=== PATIENT | female | born 1990 | race Caucasian/White ===

== ENCOUNTER 2021-03-23 18:30 | Observation (INO) | payer BC ==
[~2021-03-23] VITALS: Ht 167.6 cm; Wt 83.1 kg
[2021-03-23] MEDS ORDERED: GLUCAGON,HUMAN RECOMBINANT 1 MG/ML VIAL. IV ONE (22:00)
[2021-03-23] MEDS ORDERED: IV NORMAL SALINE 1000ML BAG 1,000 ML IV ONE ×2 (22:00→22:15)
[2021-03-23] MEDS ORDERED: fentaNYL PF VIAL 100 MCG/2 ML VIAL IV PRN (22:15)
[2021-03-23] MEDS ORDERED: ONDANSETRON PF 4 MG/2 ML VIAL. IV PRN (22:15)
[2021-03-23 22:22] LABS: BILIRUBIN,URINE SMALL (NEG); CLARITY,URINE CLEAR; COLOR,URINE YELLOW; NITRITE,URINE NEGATIVE (NEG); PH,URINE 5.5 (<5.0-8.0); PROTEIN,URINE NEGATIVE (NEG-TRACE); UROBILINOGEN,URINE 0.2 mg/dL (0.2 mg/dL)
[2021-03-23 22:24] LABS: BACTERIA,URINE 0 /HPF (0-FEW); RBC,URINE 0 /HPF (0-2)
--- NOTE | 2021-03-23 22:38 | RAD ---
PA and lateral chest. HISTORY: Esophageal foreign body PA and lateral views were taken of the chest. Lungs are free of infiltrates. There is no pneumothorax or pleural effusion. Heart is normal in size. There is no opaque foreign body in the chest. IMPRESSION: 1. No acute chest disease. Electronically signed by: Hong Orantes MD (03/23/2021 10:36 PM) [facility]
[2021-03-23 22:51] LABS: BASO # 0.1 x10^3/uL (0.0-0.2); BASO % 1 % (0-3); EOS # 0.6 x10^3/uL (0.0-0.7); EOS % 5 % (0-3); HEMOGLOBIN 12.9 g/dL (12.0-15.5); LYMPH # 3.5 x10^3/uL (1.0-4.8); LYMPH % 30 % (24-48); MEAN CORPUSCULAR HEMOGLOBIN 25 pg (25-35); MEAN CORPUSCULAR HGB CONC 32 g/dL (31-37); MEAN CORPUSCULAR VOLUME 76 fL (79-100); MONO # 0.7 x10^3/uL (0.0-1.1); MONO % 7 % (0-9); NEUT # 6.5 x10^3/uL (1.8-7.7); NEUT % 57 % (31-73); PLATELET COUNT 299 x10^3/uL (140-400); RED BLOOD COUNT 5.25 x10^6/uL (3.50-5.40); RED CELL DISTRIBUTION WIDTH 21.1 % (11.5-14.5); WHITE BLOOD COUNT 11.4 x10^3/uL (4.0-11.0)
--- NOTE | 2021-03-23 22:53 | PHYS DOC ---
Past Medical History Past Medical History: No Pertinent History Past Surgical History: No Surgical History Smoking Status: Never Smoker Alcohol Use: Occasionally Drug Use: None General Adult EDM: Chief Complaint: GI PROBLEM HPI: HPI: Patient is a 30 year old female presents with report of eating steak last night and sensation of it getting stuck in esophagus. Reports has tried to drink water and soda in attempt to improve situation however patient has not been able to keep the liquid down as it "comes back up". Reports uncomfortable pressure in chest. Denies prior esophageal food bolus or prior EGD. Patient reports history of sensation of getting food stuck, however she has always managed for symptoms to improve. Denies . Reports recent vaginal delivery 8 weeks ago. Denies shortness of breath or breathing issues. Review of Systems: Review of Systems: Constitutional: Denies fever or chills Eyes: Denies redness or eye pain HENT: Denies nasal congestion or sore throat Respiratory: Denies cough or shortness of breath Cardiovascular: Denies chest pain or palpitations GI: Reports esophageal foreign body sensation and vomiting : Denies dysuria or hematuria Musculoskeletal: Denies back pain or joint pain Integument: Denies rash or skin lesions Neurologic: Denies headache, focal weakness or sensory changes Complete systems were reviewed and found to be within normal limits, except as documented in this note. Heart Score: C/O Chest Pain: N/A Current Medications: Current Medications Medications (Trade) Dose Ordered Sig/[facility] Start Time Stop Time Status Last Admin Dose Admin Fentanyl Citrate (Fentanyl 2ml Vial) 50 mcg PRN Q2HR PRN 03/23/21 22:15 Glucagon (Glucagen) 1 mg 1X ONCE 03/23/21 22:00 03/23/21 22:01 DC Ondansetron HCl (Zofran) 4 mg PRN Q8HRS PRN 03/23/21 22:15 03/24/21 22:14 Sodium Chloride 1,000 ml @ 100 mls/hr 1X ONCE 03/23/21 22:15 03/24/21 08:14 Allergies: Allergies: Allergies Coded Allergies Type Severity Reaction Last Updated Verified cefadroxil Allergy Intermediate 03/23/21 Yes levofloxacin Allergy Intermediate 03/23/21 Yes Physical Exam: PE: Constitutional: Well developed, well nourished, no acute distress, non-toxic appearance HENT: Normocephalic, atraumatic Eyes: Conjunctiva normal, no discharge Neck: Normal range of motion, supple Lungs & Thorax: No respiratory distress, equal chest rise and fall Abdomen: Soft, no tenderness, no guarding/rebound tenderness/distention Skin: Warm, dry, no erythema, no rash Extremities: No tenderness, ROM intact, no edema Neurologic: Alert and oriented X 3, no focal deficits noted Psychologic: Affect normal, judgment normal Current Patient Data: Labs: Laboratory Tests Test 03/23/21 22:06 03/23/21 22:09 Urine Collection Type Unknown Urine Color Yellow Urine Clarity Clear Urine pH 5.5 (<5.0-8.0) Urine Specific [place] >=1.030 (1.000-1.030) Urine Protein Negative mg/dL (NEG-TRACE) Urine Glucose (UA) Negative mg/dL (NEG) Urine Ketones (Stick) 15 mg/dL (NEG) Urine Blood Negative (NEG) Urine Nitrite Negative (NEG) Urine Bilirubin Small (NEG) Urine Urobilinogen Dipstick 0.2 mg/dL (0.2 mg/dL) Urine Leukocyte Esterase Negative (NEG) Urine RBC 0 /HPF (0-2) Urine WBC 1-4 /HPF (0-4) Urine Squamous Epithelial Cells Many /LPF Urine Bacteria 0 /HPF (0-FEW) Urine Mucus Slight /LPF POC Urine HCG, Qualitative Hcg negative (Negative) Vital Signs: Vital Signs Date Time Temp Pulse Resp B/P (MAP) Pulse Ox O2 Delivery O2 Flow Rate FiO2 03/23/21 20:20 98.2 92 16 122/66 98 Room Air 98.2 EKG: EKG: [] Radiology/Procedures: Radiology/Procedures: PROCEDURE: CHEST PA & LATERAL PA and lateral chest. HISTORY: Esophageal foreign body PA and lateral views were taken of the chest. Lungs are free of infiltrates. There is no pneumothorax or pleural effusion. Heart is normal in size. There is no opaque foreign body in the chest. IMPRESSION: 1. No acute chest disease. Electronically signed by: Hong Orantes MD (03/23/2021 10:36 PM) [facility] Course & Med Decision Making: Course & Med Decision Making Pertinent Labs and Imaging studies reviewed. (See chart for details) Patient presents with HPI and physical exam consistent for esophageal food bolus. Attempted glucagon without improvement. XR without signs of radio- opaque density. Labs obtained and posted to chart. IVF hydration given. Patient requiring admission for further evaluation and treatment. Discussed with Dr. Garcia (hospitalist) who is in agreement with admission. Discussed case with Dr. Read (GI) who is in agreement with consultation. Discussed findings and plan with patient, who acknowledges understanding and agreement. Dragon Disclaimer: Dragon Disclaimer: This electronic medical record was generated, in whole or in part, using a voice recognition dictation system. Departure Departure Impression: Primary Impression: Esophageal obstruction due to food impaction Disposition: ADMITTED INPATIENT Admitting Physician: BERONICA (Jose) Condition: STABLE Referrals: ELIJAH SIERRA MD (PCP) STEVENSON JARA DO Mar 23, 2021 22:53
[2021-03-23 23:00] LABS: CALCIUM 9.8 mg/dL (8.5-10.1); CREATININE 0.7 mg/dL (0.6-1.0); GFR 98.3; POTASSIUM 3.9 mmol/L (3.5-5.1)
[2021-03-23 23:05] LABS: ALBUMIN 4.2 g/dL (3.4-5.0); ALBUMIN/GLOBULIN RATIO 0.9 (1.0-1.7); MAGNESIUM 2.2 mg/dL (1.8-2.4); TOTAL BILIRUBIN 0.6 mg/dL (0.2-1.0); TOTAL PROTEIN 8.7 g/dL (6.4-8.2)
[2021-03-23 23:32] LABS: PLT ESTIMATE ADEQUATE (ADEQUATE)
[2021-03-23 23:33] LABS: ANISOCYTOSIS MOD; HYPOCHROMIA SLIGHT
[2021-03-24] VITALS (10 sets, daily range): BP systolic 106–135; BP diastolic 51–92
--- NOTE | 2021-03-24 10:40 | PDOC1 ---
History and Physical Date of Service: DOS: DATE: 03/24/21 TIME: 10:34 Chief Complaint: Problems: (1) Esophageal obstruction due to food impaction Chief Complain: "Food stuck in esophagus" History of Present Illness: Reason for Visit: Food second esophagus causing abdominal pain HPI: Patient is a 30-year-old female admitted overnight due to pain in her epigastric area. Patient reported that on night for dinner she had eaten a steak and she felt like it was stuck at the bottom of her esophagus. She tried to drink down improvement with pressure. She dried to make herself vomit but was had no relief. She is unable to eat and drink for 24 hours and with no improvement presented to the emergency room last night. In the emergency room patient was evaluated and GI consulted who plan for EGD today. Patient admitted to hospitalist team. When seen patient was endorsing epigastric abdominal pain which he tries to swallow saliva or any sort of fluids; she was also complaining of notable amount of hunger. She was denying any sort of headache, vision changes, chest pain, shortness of breath, dysuria, joint pain. Past Medical/Surgical History: PMH/PSH: Reports no previous medical history Allergies: Allergies: Coded Allergies: cefadroxil (Verified Allergy, Intermediate, 03/23/21) levofloxacin (Verified Allergy, Intermediate, 03/23/21) Family History: Family History: Noncontributory Social History: Social History: Denies alcohol tobacco drug use Current Medications: Current Medications Current Medications Sodium Chloride 1,000 ml @ 1,000 mls/hr 1X ONCE IV Last administered on 03/23/21at 22:42; Start 03/23/21 at 22:00; Stop 03/23/21 at 22:59; Status DC Glucagon (Glucagen) 1 mg 1X ONCE IV Last administered on 03/23/21at 23:28; Start 03/23/21 at 22:00; Stop 03/23/21 at 22:01; Status DC Ondansetron HCl (Zofran) 4 mg PRN Q8HRS PRN IV NAUSEA/VOMITING; Start 03/23/21 at 22:15; Stop 03/24/21 at 22:14 Fentanyl Citrate (Fentanyl 2ml Vial) 50 mcg PRN Q2HR PRN IV PAIN; Start 03/23/21 at 22:15 Sodium Chloride 1,000 ml @ 100 mls/hr 1X ONCE IV Last administered on 03/24/21at 00:06; Start 03/23/21 at 22:15; Stop 03/24/21 at 08:14; Status DC Active Scripts Active Reported No Known Medications Prior To Admisstion (Info) Each 1 Each 1X ROS: Review of Systems Review of System Negative unless noted in HPI. Physical Exam: Vital Signs: Vital Signs Date Time Temp Pulse Resp B/P (MAP) Pulse Ox O2 Delivery O2 Flow Rate FiO2 03/24/21 07:00 98.3 85 18 135/64 (87) 100 Room Air 98.3 Physcial Exam: GEN: No apparent distress. Alert and oriented HEENT: Normal cephalic, atraumatic, external auditory canals are patent EYES: Extraocular muscles are intact, pupil are equally round and reactive to light and accommodation MUSCULOSKELETAL: Well developed , well nourished, good range of motion ENDOCRINE: No thyromegaly was palpated LYMPHATICS: No cervical chain or axillary nodes were noted HEMATOPOIETIC: No bruising NECK: Supple, no JVD, no thyromegaly was noted LUNGS: Clear to auscultation in all lung olivares without rhonchi or wheezing HEART: RRR, S1, S2 present. Peripheral pulses intact, no obvious murmurs noted ABDOMEN: Mild tenderness in epigastrium otherwise no tenderness, normal bowel sounds, no organomegaly EXTREMITIES: Without clubbing, cyanosis, or edema. Pedal pulses intact. NEUROLOGIC: Normal speech and tone. A&O x 3, moves all extremities, no obvious focal deficits PSYCHIATRIC: Normal affect, normal mood. Stable SKIN: No ulcerations or rashes, good skin turgor, no jaundice VASCULAR: Good capillary refill, neurovascular bundle appears to be intact Labs: Labs: Laboratory Tests Test 03/23/21 22:06 03/23/21 22:09 03/23/21 22:40 03/23/21 22:55 Urine Collection Type Unknown Urine Color Yellow Urine Clarity Clear Urine pH 5.5 (<5.0-8.0) Urine Specific [place] >=1.030 (1.000-1.030) Urine Protein Negative mg/dL (NEG-TRACE) Urine Glucose (UA) Negative mg/dL (NEG) Urine Ketones (Stick) 15 mg/dL (NEG) Urine Blood Negative (NEG) Urine Nitrite Negative (NEG) Urine Bilirubin Small (NEG) Urine Urobilinogen Dipstick 0.2 mg/dL (0.2 mg/dL) Urine Leukocyte Esterase Negative (NEG) Urine RBC 0 /HPF (0-2) Urine WBC 1-4 /HPF (0-4) Urine Squamous Epithelial Cells Many /LPF Urine Bacteria 0 /HPF (0-FEW) Urine Mucus Slight /LPF Bedside Urine HCG, Qualitative Hcg negative (Negative) White Blood Count 11.4 x10^3/uL (4.0-11.0) Red Blood Count 5.25 x10^6/uL (3.50-5.40) Hemoglobin 12.9 g/dL (12.0-15.5) Hematocrit 40.0 % (36.0-47.0) Mean Corpuscular Volume 76 fL (79-100) Mean Corpuscular Hemoglobin 25 pg (25-35) Mean Corpuscular Hemoglobin Concent 32 g/dL (31-37) Red Cell Distribution Width 21.1 % (11.5-14.5) Platelet Count 299 x10^3/uL (140-400) Neutrophils (%) (Auto) 57 % (31-73) Lymphocytes (%) (Auto) 30 % (24-48) Monocytes (%) (Auto) 7 % (0-9) Eosinophils (%) (Auto) 5 % (0-3) Basophils (%) (Auto) 1 % (0-3) Neutrophils # (Auto) 6.5 x10^3/uL (1.8-7.7) Lymphocytes # (Auto) 3.5 x10^3/uL (1.0-4.8) Monocytes # (Auto) 0.7 x10^3/uL (0.0-1.1) Eosinophils # (Auto) 0.6 x10^3/uL (0.0-0.7) Basophils # (Auto) 0.1 x10^3/uL (0.0-0.2) Platelet Estimate Adequate (ADEQUATE) Hypochromasia Slight Anisocytosis Mod Sodium Level 140 mmol/L (136-145) Potassium Level 3.9 mmol/L (3.5-5.1) Chloride Level 101 mmol/L (98-107) Carbon Dioxide Level 28 mmol/L (21-32) Anion Gap 11 (6-14) Blood Urea Nitrogen 14 mg/dL (7-20) Creatinine 0.7 mg/dL (0.6-1.0) Estimated GFR (Cockcroft-Gault) 98.3 BUN/Creatinine Ratio 20 (6-20) Glucose Level 89 mg/dL (70-99) Calcium Level 9.8 mg/dL (8.5-10.1) Magnesium Level 2.2 mg/dL (1.8-2.4) Total Bilirubin 0.6 mg/dL (0.2-1.0) Aspartate Amino Transf (AST/SGOT) 16 U/L (15-37) Alanine Aminotransferase (ALT/SGPT) 30 U/L (14-59) Alkaline Phosphatase 147 U/L (46-116) Total Protein 8.7 g/dL (6.4-8.2) Albumin 4.2 g/dL (3.4-5.0) Albumin/Globulin Ratio 0.9 (1.0-1.7) Lipase 101 U/L (73-393) SARS-CoV-2 RNA (BALAJI) Negative (Negative) SARS-CoV-2 Antigen (Rapid) Negative (NEGATIVE) Laboratory Tests Test 03/23/21 22:06 03/23/21 22:09 03/23/21 22:40 03/23/21 22:55 Urine Collection Type Unknown Urine Color Yellow Urine Clarity Clear Urine pH 5.5 (<5.0-8.0) Urine Specific [place] >=1.030 (1.000-1.030) Urine Protein Negative mg/dL (NEG-TRACE) Urine Glucose (UA) Negative mg/dL (NEG) Urine Ketones (Stick) 15 mg/dL (NEG) Urine Blood Negative (NEG) Urine Nitrite Negative (NEG) Urine Bilirubin Small (NEG) Urine Urobilinogen Dipstick 0.2 mg/dL (0.2 mg/dL) Urine Leukocyte Esterase Negative (NEG) Urine RBC 0 /HPF (0-2) Urine WBC 1-4 /HPF (0-4) Urine Squamous Epithelial Cells Many /LPF Urine Bacteria 0 /HPF (0-FEW) Urine Mucus Slight /LPF Bedside Urine HCG, Qualitative Hcg negative (Negative) White Blood Count 11.4 x10^3/uL (4.0-11.0) Red Blood Count 5.25 x10^6/uL (3.50-5.40) Hemoglobin 12.9 g/dL (12.0-15.5) Hematocrit 40.0 % (36.0-47.0) Mean Corpuscular Volume 76 fL (79-100) Mean Corpuscular Hemoglobin 25 pg (25-35) Mean Corpuscular Hemoglobin Concent 32 g/dL (31-37) Red Cell Distribution Width 21.1 % (11.5-14.5) Platelet Count 299 x10^3/uL (140-400) Neutrophils (%) (Auto) 57 % (31-73) Lymphocytes (%) (Auto) 30 % (24-48) Monocytes (%) (Auto) 7 % (0-9) Eosinophils (%) (Auto) 5 % (0-3) Basophils (%) (Auto) 1 % (0-3) Neutrophils # (Auto) 6.5 x10^3/uL (1.8-7.7) Lymphocytes # (Auto) 3.5 x10^3/uL (1.0-4.8) Monocytes # (Auto) 0.7 x10^3/uL (0.0-1.1) Eosinophils # (Auto) 0.6 x10^3/uL (0.0-0.7) Basophils # (Auto) 0.1 x10^3/uL (0.0-0.2) Platelet Estimate Adequate (ADEQUATE) Hypochromasia Slight Anisocytosis Mod Sodium Level 140 mmol/L (136-145) Potassium Level 3.9 mmol/L (3.5-5.1) Chloride Level 101 mmol/L (98-107) Carbon Dioxide Level 28 mmol/L (21-32) Anion Gap 11 (6-14) Blood Urea Nitrogen 14 mg/dL (7-20) Creatinine 0.7 mg/dL (0.6-1.0) Estimated GFR (Cockcroft-Gault) 98.3 BUN/Creatinine Ratio 20 (6-20) Glucose Level 89 mg/dL (70-99) Calcium Level 9.8 mg/dL (8.5-10.1) Magnesium Level 2.2 mg/dL (1.8-2.4) Total Bilirubin 0.6 mg/dL (0.2-1.0) Aspartate Amino Transf (AST/SGOT) 16 U/L (15-37) Alanine Aminotransferase (ALT/SGPT) 30 U/L (14-59) Alkaline Phosphatase 147 U/L (46-116) Total Protein 8.7 g/dL (6.4-8.2) Albumin 4.2 g/dL (3.4-5.0) Albumin/Globulin Ratio 0.9 (1.0-1.7) Lipase 101 U/L (73-393) SARS-CoV-2 RNA (BALAJI) Negative (Negative) SARS-CoV-2 Antigen (Rapid) Negative (NEGATIVE) Assessment/Plan Assessment/Plan Patient is a 30-year-old female presenting today due to esophageal obstruction. Esophageal obstruction due to food impaction -Patient reports getting steak caught in her esophagus on night -Unable to eat or drink for the past 24 hours; still feels like food is stuck -GI consulted, plan for EGD today -Pending EGD goals no complications can likely discharge later today -N.p.o. -I spent 10 minutes discussing advance care planning with patient Justifications for Admission Other Justification LUL ORTIZ MD Mar 24, 2021 10:40
[2021-03-24] MEDS ORDERED: PROPOFOL 10 MG/ML (20ML) VIAL. IV ONE ×2 (18:50→18:59)
[2021-03-24] MEDS ORDERED: ePHEDrine PF IN SALINE 50 MG/10 ML SYRINGE. IV ONE (18:51)
--- NOTE | 2021-03-24 18:57 | PDOC2 ---
CONSULT Date of Consult Date of Consult DATE: 03/24/21 TIME: 18:56 Reason for Consult Reason for Consult: Dysphagia Current Problem List Problem List Problems Medical Problems: (1) Esophageal obstruction due to food impaction Status: Acute Current Medications Current Medications Current Medications Sodium Chloride 1,000 ml @ 1,000 mls/hr 1X ONCE IV Last administered on 03/23/21at 22:42; Start 03/23/21 at 22:00; Stop 03/23/21 at 22:59; Status DC Glucagon (Glucagen) 1 mg 1X ONCE IV Last administered on 03/23/21at 23:28; Sta rt 03/23/21 at 22:00; Stop 03/23/21 at 22:01; Status DC Ondansetron HCl (Zofran) 4 mg PRN Q8HRS PRN IV NAUSEA/VOMITING; Start 03/23/21 at 22:15; Stop 03/24/21 at 22:14 Fentanyl Citrate (Fentanyl 2ml Vial) 50 mcg PRN Q2HR PRN IV PAIN; Start 03/23/21 at 22:15 Sodium Chloride 1,000 ml @ 100 mls/hr 1X ONCE IV Last administered on 03/24/21at 00:06; Start 03/23/21 at 22:15; Stop 03/24/21 at 08:14; Status DC Propofol (Diprivan) 200 mg STK-MED ONCE IV ; Start 03/24/21 at 18:50; Stop 03/24/21 at 18:51; Status DC Ephedrine Sulfate (ePHEDrine PF IN SALINE SYRINGE) 50 mg STK-MED ONCE IV ; Start 03/24/21 at 18:51; Stop 03/24/21 at 18:51; Status DC Active Scripts Active Reported No Known Medications Prior To Admisstion (Info) Each 1 Each MC 1X Allergies Allergies: Coded Allergies: cefadroxil (Verified Allergy, Intermediate, 03/24/21) levofloxacin (Verified Allergy, Intermediate, 03/24/21) Vitals VITALS Vital Signs Date Time Temp Pulse Resp B/P (MAP) Pulse Ox O2 Delivery O2 Flow Rate FiO2 03/24/21 18:47 Room Air 03/24/21 18:47 97 102 18 99 97.0 03/24/21 15:00 108/60 (76) Labs Labs Laboratory Tests Test 03/23/21 22:06 03/23/21 22:09 03/23/21 22:40 03/23/21 22:55 Urine Collection Type Unknown Urine Color Yellow Urine Clarity Clear Urine pH 5.5 (<5.0-8.0) Urine Specific [place] >=1.030 (1.000-1.030) Urine Protein Negative mg/dL (NEG-TRACE) Urine Glucose (UA) Negative mg/dL (NEG) Urine Ketones (Stick) 15 mg/dL (NEG) Urine Blood Negative (NEG) Urine Nitrite Negative (NEG) Urine Bilirubin Small (NEG) Urine Urobilinogen Dipstick 0.2 mg/dL (0.2 mg/dL) Urine Leukocyte Esterase Negative (NEG) Urine RBC 0 /HPF (0-2) Urine WBC 1-4 /HPF (0-4) Urine Squamous Epithelial Cells Many /LPF Urine Bacteria 0 /HPF (0-FEW) Urine Mucus Slight /LPF Bedside Urine HCG, Qualitative Hcg negative (Negative) White Blood Count 11.4 x10^3/uL (4.0-11.0) Red Blood Count 5.25 x10^6/uL (3.50-5.40) Hemoglobin 12.9 g/dL (12.0-15.5) Hematocrit 40.0 % (36.0-47.0) Mean Corpuscular Volume 76 fL (79-100) Mean Corpuscular Hemoglobin 25 pg (25-35) Mean Corpuscular Hemoglobin Concent 32 g/dL (31-37) Red Cell Distribution Width 21.1 % (11.5-14.5) Platelet Count 299 x10^3/uL (140-400) Neutrophils (%) (Auto) 57 % (31-73) Lymphocytes (%) (Auto) 30 % (24-48) Monocytes (%) (Auto) 7 % (0-9) Eosinophils (%) (Auto) 5 % (0-3) Basophils (%) (Auto) 1 % (0-3) Neutrophils # (Auto) 6.5 x10^3/uL (1.8-7.7) Lymphocytes # (Auto) 3.5 x10^3/uL (1.0-4.8) Monocytes # (Auto) 0.7 x10^3/uL (0.0-1.1) Eosinophils # (Auto) 0.6 x10^3/uL (0.0-0.7) Basophils # (Auto) 0.1 x10^3/uL (0.0-0.2) Platelet Estimate Adequate (ADEQUATE) Hypochromasia Slight Anisocytosis Mod Sodium Level 140 mmol/L (136-145) Potassium Level 3.9 mmol/L (3.5-5.1) Chloride Level 101 mmol/L (98-107) Carbon Dioxide Level 28 mmol/L (21-32) Anion Gap 11 (6-14) Blood Urea Nitrogen 14 mg/dL (7-20) Creatinine 0.7 mg/dL (0.6-1.0) Estimated GFR (Cockcroft-Gault) 98.3 BUN/Creatinine Ratio 20 (6-20) Glucose Level 89 mg/dL (70-99) Calcium Level 9.8 mg/dL (8.5-10.1) Magnesium Level 2.2 mg/dL (1.8-2.4) Total Bilirubin 0.6 mg/dL (0.2-1.0) Aspartate Amino Transf (AST/SGOT) 16 U/L (15-37) Alanine Aminotransferase (ALT/SGPT) 30 U/L (14-59) Alkaline Phosphatase 147 U/L (46-116) Total Protein 8.7 g/dL (6.4-8.2) Albumin 4.2 g/dL (3.4-5.0) Albumin/Globulin Ratio 0.9 (1.0-1.7) Lipase 101 U/L (73-393) SARS-CoV-2 RNA (BALAJI) Negative (Negative) SARS-CoV-2 Antigen (Rapid) Negative (NEGATIVE) Laboratory Tests Test 03/23/21 22:06 03/23/21 22:09 03/23/21 22:40 03/23/21 22:55 Urine Collection Type Unknown Urine Color Yellow Urine Clarity Clear Urine pH 5.5 (<5.0-8.0) Urine Specific [place] >=1.030 (1.000-1.030) Urine Protein Negative mg/dL (NEG-TRACE) Urine Glucose (UA) Negative mg/dL (NEG) Urine Ketones (Stick) 15 mg/dL (NEG) Urine Blood Negative (NEG) Urine Nitrite Negative (NEG) Urine Bilirubin Small (NEG) Urine Urobilinogen Dipstick 0.2 mg/dL (0.2 mg/dL) Urine Leukocyte Esterase Negative (NEG) Urine RBC 0 /HPF (0-2) Urine WBC 1-4 /HPF (0-4) Urine Squamous Epithelial Cells Many /LPF Urine Bacteria 0 /HPF (0-FEW) Urine Mucus Slight /LPF Bedside Urine HCG, Qualitative Hcg negative (Negative) White Blood Count 11.4 x10^3/uL (4.0-11.0) Red Blood Count 5.25 x10^6/uL (3.50-5.40) Hemoglobin 12.9 g/dL (12.0-15.5) Hematocrit 40.0 % (36.0-47.0) Mean Corpuscular Volume 76 fL (79-100) Mean Corpuscular Hemoglobin 25 pg (25-35) Mean Corpuscular Hemoglobin Concent 32 g/dL (31-37) Red Cell Distribution Width 21.1 % (11.5-14.5) Platelet Count 299 x10^3/uL (140-400) Neutrophils (%) (Auto) 57 % (31-73) Lymphocytes (%) (Auto) 30 % (24-48) Monocytes (%) (Auto) 7 % (0-9) Eosinophils (%) (Auto) 5 % (0-3) Basophils (%) (Auto) 1 % (0-3) Neutrophils # (Auto) 6.5 x10^3/uL (1.8-7.7) Lymphocytes # (Auto) 3.5 x10^3/uL (1.0-4.8) Monocytes # (Auto) 0.7 x10^3/uL (0.0-1.1) Eosinophils # (Auto) 0.6 x10^3/uL (0.0-0.7) Basophils # (Auto) 0.1 x10^3/uL (0.0-0.2) Platelet Estimate Adequate (ADEQUATE) Hypochromasia Slight Anisocytosis Mod Sodium Level 140 mmol/L (136-145) Potassium Level 3.9 mmol/L (3.5-5.1) Chloride Level 101 mmol/L (98-107) Carbon Dioxide Level 28 mmol/L (21-32) Anion Gap 11 (6-14) Blood Urea Nitrogen 14 mg/dL (7-20) Creatinine 0.7 mg/dL (0.6-1.0) Estimated GFR (Cockcroft-Gault) 98.3 BUN/Creatinine Ratio 20 (6-20) Glucose Level 89 mg/dL (70-99) Calcium Level 9.8 mg/dL (8.5-10.1) Magnesium Level 2.2 mg/dL (1.8-2.4) Total Bilirubin 0.6 mg/dL (0.2-1.0) Aspartate Amino Transf (AST/SGOT) 16 U/L (15-37) Alanine Aminotransferase (ALT/SGPT) 30 U/L (14-59) Alkaline Phosphatase 147 U/L (46-116) Total Protein 8.7 g/dL (6.4-8.2) Albumin 4.2 g/dL (3.4-5.0) Albumin/Globulin Ratio 0.9 (1.0-1.7) Lipase 101 U/L (73-393) SARS-CoV-2 RNA (BALAJI) Negative (Negative) SARS-CoV-2 Antigen (Rapid) Negative (NEGATIVE) Assessment/Plan Assessment/Plan Dysphaiga-with meat impaction, EGD with foreign body removal planned. R/B discussed with patient who is willing to proceed. DYLAN MASON MD Mar 24, 2021 18:57
[2021-03-24] MEDS ORDERED: IV RINGERS,LACTATED 1000ML 1,000 ML IV SCH (19:00)
--- NOTE | 2021-03-24 19:04 | PDOC4 ---
Operative Note Operative Note EGD with biopsy Meds propofol per anesthesia Pre-op dx dysphagia/meat impaction Post-op reflux esophagitis s/p bx impacted meat passed with sedatoin Plan advance diet with release tonight if tolerates Prilosec 40 mg daily for two months with interval dilation at that time DYLAN MASON MD Mar 24, 2021 19:04
--- NOTE | 2021-03-25 02:31 | CONS ---
DATE OF CONSULTATION: 03/24/2021 GASTROINTESTINAL CONSULTATION REASON FOR CONSULTATION: Dysphagia, meat impaction. HISTORY OF PRESENT ILLNESS: A 30-year-old female who is 2, para 2, is otherwise healthy, has had recurrent meat impactions. This one did not pass, so approximately 36 hours after the meat bolus was impacted, she has come to the hospital for further evaluation and care. No heartburn. No risk factors for reflux. No change in weight. No bleeding, no chest pain presently, still feels a sensation of food bolus being stuck in the substernal location. Endoscopy was recommended for possible extraction. PAST MEDICAL HISTORY: 2, para 2. ALLERGIES: CEFADROXIL, LEVOFLOXACIN. MEDICATIONS: None. FAMILY AND SOCIAL HISTORY: She is nonsmoker, nondrinker. Mother of 2. REVIEW OF SYSTEMS: Per records. PHYSICAL EXAMINATION: GENERAL: Reveals a well-nourished, well-developed female. VITAL SIGNS: Temperature 98.7, pulse 80, respiratory rate 18, blood pressure is 108/60. LUNGS: Clear. CARDIOVASCULAR: Reveals an S1, S2, without S3, S4 with no appreciable murmur. ABDOMEN: Reveals a soft abdomen, normal bowel sounds without appreciable hepatosplenomegaly. EXTREMITIES: Reveals no cyanosis, clubbing or edema. IMPRESSION: Dysphagia with meat impaction. Differential includes achalasia, malignancy, Schatzki's ring, eosinophilic esophagitis, peptic stricture, Ramon's, among others; therefore, recommend upper endoscopy with possible biopsy, foreign body removal, dilatation will most likely not be performed due to the duration of the food bolus has been in approximately now for over 36. Risks and benefits were discussed. The patient is willing to proceed. HARLEEN DR: Olinda TID: [id number]
--- NOTE | 2021-03-27 14:07 | PATHOLOGY ---
[facility] Accession Number: [id number] . 01 Material submitted: . esophagus - DISTAL ESOPHAGUS. Modifiers: distal . 01 Clinical history: . GERD EGD ESOPHAGEAL FOOD BOLUS . 02 Diagnosis: Esophageal biopsies, distal esophagus: - Reflux esophagitis. (JPM:kimi; 03/27/2021) S 03/27/2021 0906 Local . 02 Comment: Sections of the distal esophageal biopsy reveal segments of hyperplastic squamous esophageal mucosa focally containing intraepithelial inflammatory cells including a few eosinophils. There is also a segment of gastric mucosa showing mild chronic inflammation. The findings are consistent with reflux esophagitis. There is no evidence of Ramon's change, dysplasia, or malignancy. (JPM:kimi; 03/27/2021) . 02 Electronically signed: . Smith Pittman MD, Pathologist NPI- [id number] . 01 Gross description: . The specimen is submitted in formalin, labeled "Anupama Velez, distal esophagus biopsy". Received are 4 segments of pale dominique tissue ranging in size from 0.2 to 0.4 cm in maximum dimensions. The specimen is submitted in cassette A1. ([facility]; 03/26/2021) NRI/NRI 03/26/2021 1741 Local . 02 Pathologist provided ICD-10: K21.00 . 02 CPT . 022374 Specimen Comment: A courtesy copy of this report has been sent to [phone], [phone]- Specimen Comment: [phone], , Specimen Comment: Report sent to , DR GUAJARDO, DR SIERRA / Specimen Comment: DR JRAA Performed at: 01 [facility] [address], [place], [place] [id number] MD Dario Zuniga MD Phone: [phone] Performed at: 02 [facility] [address], [place] [id number] MD Smith Pittman MD Phone: [phone]
--- NOTE | 2021-04-11 14:12 | NUR ---
Late Entry - NaCl bolus infusion started on 03/23/21 at 2242 and stopped on 03/23/21 at 2342. NaCl infusion started on 03/24/21 at 0006 and stopped on 03/24/21 at 1006.
== END 2021-03-24 22:20 | disposition home or self-care (01) ==
LOC: ER 18:30 → 6 SOUTH 23:35
PROVIDERS: ADMIT Internal Medicine; ATTEND Internal Medicine
DX: T18.128A Food in esophagus causing other injury, initial encounter (principal); K22.2 Esophageal obstruction; K21.00 Gastro-esophageal reflux disease with esophagitis, without bleeding; Z20.822 Contact with and (suspected) exposure to COVID-19; Y92.89 Other specified places as the place of occurrence of the external cause; Z79.899 Other long term (current) drug therapy
CPT/HCPCS: 36415; 43239; 71046; 80053; 81001; 81025; 83690; 83735; 85025; 87426; 88305; 96361; 96374; 99284; G0378; J1610; J2704; J7030; J7120; U0003; U0005; G0379